=== PATIENT | female | born 1995 | race Caucasian/White ===

== ENCOUNTER 2017-09-12 19:55 | Emergency (ER) | payer SELFPAY | END 2017-09-12 22:15 | disposition home or self-care (01) | LOC: ERS 19:55 → MERGE 19:55 → ERS 22:15 | DX: L73.9 Follicular disorder, unspecified (principal); F41.9 Anxiety disorder, unspecified; F31.9 Bipolar disorder, unspecified; F17.210 Nicotine dependence, cigarettes, uncomplicated | CPT/HCPCS: 99283 ==

== ENCOUNTER 2017-12-11 22:59 | Emergency (ER) | payer SELFPAY ==
[2017-12-11] MEDS ORDERED: Ondansetron ODT 4 MG TAB ONE (23:18)
[2017-12-11 23:43] LABS: #Basophils 0.1 thou/uL (0.0-0.2); #Eosinphils 0.2 thou/uL (0.0-0.7); #Lymphocytes 3.7 thou/uL (1.20-3.40); #Monocytes 0.7 thou/uL (0.11-0.59); #Neutrophils 3.1 thou/uL (1.40-6.50); %Basophils 1.6 % (0.0-1.0); %Lymphocytes 47.4 % (21.0-51.0); %Monocytes 8.7 % (0.0-10.0); %Neutrophils 40.4 % (42.0-75.0); Hemoglobin 12.6 g/dL (12.0-16.0); Mean Corpuscular HGB CONC 32.2 g/dL (32.0-36.0); Mean Corpuscular Hemoglobin 25.5 pg (27.0-31.0); Mean Corpuscular Volume 79.1 fl (81.0-99.0); Mean Platelet Volume 9.4 fL (7.4-10.4); Platelet Count 193 thou/uL (130-400); RBC Distribution Width 13.1 % (11.5-14.5); Red Blood Cell (RBC) Count 4.96 mill/uL (4.20-5.40); White Blood Cell (WBC) Count 7.7 thou/uL (4.8-10.8)
[2017-12-11 23:46] LABS: BHCG - Serum Negative (NEGATIVE); Pregs Control Background? CLEAR/WHITE (CLR/WHITE); Pregs Control Bar Appear? YES (CONTROL BAR)
[2017-12-11 23:59] LABS: ALT (SGPT) 36 U/L (8-55); AST (SGOT) 25 U/L (5-34); Albumin 4.2 g/dL (3.5-5.0); Alkaline Phosphatase 60 U/L (40-150); Anion Gap 17 mmol/L (10-20); BUN (Urea Nitrogen) 8 mg/dL (7.0-18.7); Bilirubin, Total 0.2 mg/dL (0.2-1.2); Calc. Creatinine Clearance 0 mL/min (70-130); Calcium 9.5 mg/dL (7.8-10.44); Carbon Dioxide 20 mmol/L (22-29); Chloride 107 mmol/L (98-107); Estimated GFR-MDRD Greater than 90; Globulin 3.4 g/dL (2.4-3.5); Glucose 122 mg/dL (70-105); Potassium 3.8 mmol/L (3.5-5.1); Protein, Total 7.6 g/dL (6.0-8.3); Sodium 140 mmol/L (136-145)
[2017-12-12 00:16] LABS: Lipase 27 U/L (8-78)
== END 2017-12-12 00:44 | disposition home or self-care (01) ==
LOC: SCSER 22:59
DX: R11.2 Nausea with vomiting, unspecified (principal); F41.9 Anxiety disorder, unspecified; F31.9 Bipolar disorder, unspecified; F17.210 Nicotine dependence, cigarettes, uncomplicated
CPT/HCPCS: 80053; 83690; 84703; 85025; 99283; Q0162

== ENCOUNTER 2018-01-23 14:25 | Emergency (ER) | payer SELFPAY ==
[2018-01-23 16:49] LABS: Pregnancy Test - Urine (BHCG) Negative (Negative)
[2018-01-23 16:50] LABS: Pregu Control Background? CLEAR/WHITE (CLR/WHITE); Pregu Control Bar Appear? YES (CONTROL BAR); Specific Gravity 1.015 (1.002-1.036)
[2018-01-23 16:52] LABS: Bilirubin Negative (Negative); Blood, Urine Negative (Negative); Clarity CLEAR (Clear); Glucose, Urine (Dipstick) Negative (Negative); Leukocyte Negative (Negative); Nitrite Negative (Negative); Protein, Urine (Dipstick) Negative (Neg-Trace); Specific Gravity, Urine 1.015 (1.002-1.036); pH, Urine 7.5 (5.0-9.0)
== END 2018-01-23 16:38 | disposition home or self-care (01) ==
LOC: ERS 14:25
DX: J06.9 Acute upper respiratory infection, unspecified (principal); F31.9 Bipolar disorder, unspecified; F41.9 Anxiety disorder, unspecified; I42.9 Cardiomyopathy, unspecified
CPT/HCPCS: 81003; 81025; 99283

== ENCOUNTER 2018-03-22 09:28 | Outpatient (CLI) | payer MEDICAID | END 2018-03-22 09:29 | disposition home or self-care (01) | LOC: BICULT 09:28 | PROVIDERS: ATTEND Family Medicine | DX: R10.2 Pelvic and perineal pain (principal); R10.9 Unspecified abdominal pain; K82.4 Cholesterolosis of gallbladder; N83.202 Unspecified ovarian cyst, left side | CPT/HCPCS: 76700; 76856 ==

== ENCOUNTER 2018-06-10 00:05 | Emergency (ER) | payer SELFPAY ==
[2018-06-10 01:12] LABS: Bilirubin Negative (Negative); Blood, Urine Negative (Negative); Clarity CLEAR (Clear); Glucose, Urine (Dipstick) Negative (Negative); Leukocyte Negative (Negative); Nitrite Positive (Negative); Protein, Urine (Dipstick) Negative (Neg-Trace); Specific Gravity, Urine 1.027 (1.002-1.036)
[2018-06-10 01:13] LABS: Pregnancy Test - Urine (BHCG) Negative (Negative); Pregu Control Background? CLEAR/WHITE (CLR/WHITE); Pregu Control Bar Appear? YES (CONTROL BAR); Specific Gravity 1.027 (1.002-1.036)
[2018-06-10 01:15] LABS: Bacteria/HPF 4+ HPF (None Seen); Pathc Cast-AUWi Flag 0.58 (0-2.49); Squamous Epithelial 0-3 HPF (0-3); WBC/HPF 0-3 HPF (0-3)
[2018-06-10] MEDS ORDERED: Ondansetron ODT 4 MG TAB ONE (01:18)
[2018-06-10 01:21] LABS: Hyaline Casts/LPF NONE SEEN LPF (0-3 Hyaline); RBC/HPF 0-3 HPF (0-3)
== END 2018-06-10 02:00 | disposition home or self-care (01) ==
LOC: ERS 00:05
DX: N39.0 Urinary tract infection, site not specified (principal); R11.2 Nausea with vomiting, unspecified; F31.9 Bipolar disorder, unspecified; F41.9 Anxiety disorder, unspecified; F17.210 Nicotine dependence, cigarettes, uncomplicated; Z79.899 Other long term (current) drug therapy
CPT/HCPCS: 81003; 81015; 81025; 87077; 87086; 87186; 99284; Q0162

== ENCOUNTER 2018-07-15 16:12 | Outpatient (CLI) | payer OTHER ==
[2018-07-15 17:27] LABS: Hemoglobin 14.2 g/dL (12.0-16.0); Mean Corpuscular HGB CONC 34.3 g/dL (32.0-36.0); Mean Corpuscular Hemoglobin 28.9 pg (27.0-31.0); Mean Corpuscular Volume 84.2 fL (78.0-98.0); Mean Platelet Volume 8.3 fL (7.4-10.4); Platelet Count 203 thou/uL (130-400); RBC Distribution Width 12.7 % (11.5-14.5); Red Blood Cell (RBC) Count 4.91 mill/uL (4.20-5.40); White Blood Cell (WBC) Count 9.6 thou/uL (4.8-10.8)
[2018-07-15 18:10] LABS: BHCG - Serum Negative (NEGATIVE); Pregs Control Background? CLEAR/WHITE (CLR/WHITE); Pregs Control Bar Appear? YES (CONTROL BAR)
== END 2018-07-15 16:13 | disposition home or self-care (01) ==
LOC: LABBT 16:12
PROVIDERS: ATTEND Obstetrics & Gynecology
DX: Z01.812 Encounter for preprocedural laboratory examination (principal); N83.202 Unspecified ovarian cyst, left side
CPT/HCPCS: 84703; 85027; 86850; 86900; 86901

== ENCOUNTER 2018-07-19 11:26 | Day surgery (SDC) | payer OTHER ==
[2018-07-15 16:31] VITALS: BMI 29.8
--- NOTE | 2018-07-15 20:18 | HP ---
She is set for date surgery on 07/19/2018 HISTORY OF PRESENT ILLNESS: Ms. Ryan is a 23-year-old white female, who was referred for pelvic enrique n, it has been ongoing for the past several months. She is noted to have an ultrasound of the pelvis showing a 6 cm simple ovarian cyst noted on the left ovary region. This had been persistent and con tinues to cause her pelvic pain and desires surgical excision. PAST MEDICAL HISTORY: Negative. PAST SURGICAL HISTORY: Negative. SOCIAL HISTORY: She has never been . She is approximately a 1/4 pack per day smoker, minima l alcohol use. FAMILY HISTORY: Heart disease in her maternal grandmother. She has had a history of chlamydia in past. Pap smear is up to date being normal in 08/27/2017. ALLERGIES: SULFA. PHYSICAL EXAMINATION: VITAL SIGNS: Height 5 feet 2 inches, 163 pounds, BMI 29.8, blood pressure 130/84, pulse regular 89, respirations 18. GENERAL: She is well-developed, well-nourished, white female in no acute distress. HEENT: Within normal limits. CHEST: Clear to auscultation. HEART: Regular rate and rhythm. S1, S2 heart sounds, no murmurs, rubs or gallops. ABDOMEN: Soft, nontender, nondistended with no palpable masses. PELVIC: Vulva and vagina had no lesions. Cervix had no lesions. Uterus was small, nontender, not e nlarged. Adnexa with some tenderness in the left adnexal side with a 6 cm left adnexal mass apprecia mckenna. This was confirmed by transvaginal ultrasound, showing a 6 cm left adnexal cyst, appears contig uous with left ovarian cortex, normal appearing right ovary and uterus noted on ultrasound. No cul-d e-sac fluid seen. ASSESSMENT: A 23-year-old white female G0 with persistent left side at 6 cm simple ovarian cyst with continued pelvic pain. PLAN: Proceed with a diagnostic laparoscopy with laparoscopic left ovarian cystectomy. The patient is also desiring evaluation of her tubal patency due to her previous chlamydia history and will also perform a chromotubation of the tubes during this laparoscopic procedure. Risks and benefits of proc edure discussed in detail. She is set for surgery on 07/19/2018.
[2018-07-19] MEDS ORDERED: Famotidine/PF 20 mg/2ml Vial ONE (11:54)
[2018-07-19] MEDS ORDERED: CeleCOXIB 100 MG CAP ONE (11:55)
[2018-07-19] MEDS ORDERED: Gabapentin 300 MG CAP ONE (11:56)
[2018-07-19] MEDS ORDERED: CEFAZOLIN/Water 2 GM/20 ML SYRINGE ONE (11:56)
[2018-07-19] MEDS ORDERED: Fentanyl 100 MCG/2 ML VIAL ONE ×3 (12:35→15:39)
[2018-07-19] MEDS ORDERED: Midazolam HCl 2 mg/2 ml Vial ONE ×2 (12:35→13:25)
[2018-07-19] MEDS ORDERED: Bupivacaine HCl 0.5%/Epinephrine 1:200,000/PF 30 ml Vial ONE (13:04)
[2018-07-19] MEDS ORDERED: Meperidine HCl/PF 25 MG/ML VIAL ONE (15:35)
[2018-07-19] MEDS ORDERED: Ketorolac Tromethamine 30 MG/ML VIAL ONE (15:55)
[2018-07-19] MEDS ORDERED: HYDROcodone/Acetaminophen 5/325 mg Tablet ONE (18:41)
== END 2018-07-19 18:42 | disposition home or self-care (01) ==
LOC: SDC 11:26
PROVIDERS: ATTEND Obstetrics & Gynecology
PROC: 0UN74ZZ Release Bilateral Fallopian Tubes, Percutaneous Endoscopic Approach (ICD-10-PCS; principal; 2018-07-19)
PROC: 3E1P78Z Irrigation of Female Reproductive using Irrigating Substance, Via Natural or Artificial Opening (ICD-10-PCS; principal; 2018-07-19)
DX: N73.6 Female pelvic peritoneal adhesions (postinfective) (principal); N70.11 Chronic salpingitis; N83.202 Unspecified ovarian cyst, left side; F17.210 Nicotine dependence, cigarettes, uncomplicated; Z79.899 Other long term (current) drug therapy; Z88.2 Allergy status to sulfonamides; Z88.8 Allergy status to other drugs, medicaments and biological substances
CPT/HCPCS: 96374; 96375; J0670; J1885; J2175; J2250; J3010; Q9968; S0028

== ENCOUNTER 2018-09-11 14:45 | Observation (INO) | payer SELFPAY ==
[2018-09-11 15:24] LABS: Bilirubin Negative (Negative); Blood, Urine Negative (Negative); Clarity CLEAR (Clear); Glucose, Urine (Dipstick) Negative (Negative); Leukocyte Trace (Negative); Nitrite Negative (Negative); Protein, Urine (Dipstick) Negative (Neg-Trace); Specific Gravity, Urine 1.014 (1.002-1.036); Urobilinogen 0.2 mg/dL (0.2-1.0); pH, Urine 5.5 (5.0-9.0)
[2018-09-11 15:25] LABS: Pregnancy Test - Urine (BHCG) Negative (Negative); Pregu Control Background? CLEAR/WHITE (CLR/WHITE); Pregu Control Bar Appear? YES (CONTROL BAR); Specific Gravity 1.014 (1.002-1.036)
[2018-09-11 15:25] LABS: #Eosinphils 0.1 thou/uL (0.0-0.7); #Lymphocytes 2.5 thou/uL (1.20-3.40); #Monocytes 0.4 thou/uL (0.11-0.59); %Basophils 0.3 % (0.0-1.0); %Eosinophils 0.6 % (0.0-10.0); %Lymphocytes 27.9 % (21.0-51.0); %Monocytes 4.7 % (0.0-10.0); %Neutrophils 66.5 % (42.0-75.0); Hemoglobin 15.1 g/dL (12.0-16.0); Mean Corpuscular HGB CONC 34.1 g/dL (32.0-36.0); Mean Corpuscular Hemoglobin 28.1 pg (27.0-31.0); Mean Corpuscular Volume 82.7 fL (78.0-98.0); Mean Platelet Volume 8.4 fL (7.4-10.4); Platelet Count 264 thou/uL (130-400); RBC Distribution Width 12.2 % (11.5-14.5); Red Blood Cell (RBC) Count 5.36 mill/uL (4.20-5.40); White Blood Cell (WBC) Count 9.1 thou/uL (4.8-10.8)
[2018-09-11 15:26] LABS: Bacteria/HPF 2+ HPF (None Seen); Hyaline Casts/LPF 0-3 HYALINE CAST LPF (0-3 Hyaline); Pathc Cast-AUWi Flag 0.43 (0-2.49); RBC/HPF 0-3 HPF (0-3); Squamous Epithelial 0-3 HPF (0-3); WBC/HPF 0-3 HPF (0-3)
[2018-09-11] MEDS ORDERED: Lorazepam 2 MG/ML VIAL ONE ×2 (15:30→22:45)
[2018-09-11 15:33] LABS: Amphetamine Not Detected (NotDetected); Barbiturates Screen Not Detected (NotDetected); Benzodiazepine Screen Not Detected (NotDetected); Cocaine Metabolite Screen Not Detected (NotDetected); Medtox Control Line Valid? VALID (VALID); Medtox Reader # READER 1; Methadone Not Detected (NotDetected); Methamphetamine Not Detected (NotDetected); Opiate Screen Not Detected (NotDetected); Oxycodone Screen Not Detected (NotDetected); Phencyclidine (PCP) Not Detected (NotDetected); THC/Cannabinoid Screen Not Detected (NotDetected); Tricyclic Screen Not Detected (NotDetected)
[2018-09-11 15:50] LABS: ALT (SGPT) 43 U/L (8-55); AST (SGOT) 26 U/L (5-34); Acetaminophen Less than 6.0 mcg/mL (10.0-30.0); Albumin 5.3 g/dL (3.5-5.0); Alcohol Less than 10 mg/dL (Less than 10); Alkaline Phosphatase 91 U/L (40-150); Anion Gap 16 mmol/L (10-20); BUN (Urea Nitrogen) 10 mg/dL (7.0-18.7); Bilirubin, Total 0.5 mg/dL (0.2-1.2); CK (CPK) 145 U/L (29-168); Calc. Creatinine Clearance 0 mL/min (70-130); Calcium 10.2 mg/dL (7.8-10.44); Carbon Dioxide 24 mmol/L (22-29); Chloride 103 mmol/L (98-107); Estimated GFR-MDRD 82; Globulin 4.1 g/dL (2.4-3.5); Glucose 122 mg/dL (70-105); Potassium 3.8 mmol/L (3.5-5.1); Protein, Total 9.4 g/dL (6.0-8.3); Salicylate Less than 8.0 mg/dL (15.0-30.0); Sodium 139 mmol/L (136-145)
[2018-09-11] MEDS ORDERED: Ibuprofen 800 MG TAB ONE (21:20)
[2018-09-11] MEDS ORDERED: Cyproheptadine 4 MG TAB PO SCH (23:30)
[2018-09-12] MEDS ORDERED: Lorazepam 2 MG/ML VIAL SLOW IVP PRN (01:16)
[2018-09-12] MEDS: Sodium Chloride 0.45% 1,000 ML IV SCH ×2 (01:30→10:23)
[2018-09-12 01:59] VITALS: BMI 31.0
[2018-09-12] MEDS ORDERED: cloNIDine 0.1 MG TAB PO PRN (08:56)
--- NOTE | 2018-09-12 11:34 | HP ---
PRIMARY CARE PHYSICIAN: Dr. Lehman. CHIEF COMPLAINT: Depression and took a lot of pills. HISTORY OF PRESENT ILLNESS: Ms. Ryan is a very pleasant 23-year-old female who says that she has be en arguing with her boyfriend off and on and also arguing with his parents and says that she got depr essed, because of the way things have been going and as a result she took a handful of Zoloft in an a ttempt to hurt herself and just to sleep. She reportedly took about 30-40 pills. When asked if she has tried suicide attempt in the past, she tells me that she has not; however, in the ER records, it says that she has cut herself in the past. It does not reveal a lot with regards to how she has been feeling lately other than feeling depressed. She says that she moved here from [place] about a yea r ago to live with her boyfriend. Currently, she is unemployed and stays with him as well as his par ents, otherwise no significant complaints. She says she is feeling a bit sleepy today, but other scott n that, denies any headaches, no dizziness, no chest pain, no shortness of breath, no PND, no orthopn ea. REVIEW OF SYSTEMS: All systems are reviewed and are negative except for that mentioned in the histor y of present illness. PAST MEDICAL HISTORY: Significant for depression for about 2 years. PAST SURGICAL HISTORY: She has had a laparoscopic ovary removed. ALLERGIES: To BACTRIM and LASIX. MEDICATIONS: Include Zoloft 100 mg daily. SOCIAL HISTORY: She works as a EDUCATION NURSE. She smokes 3-4 times a week. Denies any alcohol use, no drugs. FAMILY HISTORY: Significant for heart disease. PHYSICAL EXAMINATION: VITAL SIGNS: Blood pressure was 116/81, heart rate initially was 138, currently heart rate is around 115, respiratory rate of 20, temperature is 98.2. GENERAL: She is well-developed and well-nourished. She appears to be in no acute distress. HEENT: Pupils are equal, round, and reactive. Extraocular muscles are intact. Her sclerae are anic teric. Throat: There is no erythema, no exudates. NECK: No adenopathy, no bruits. LUNGS: Clear to auscultation. There is no wheezing, no rales. CARDIOVASCULAR: She has a normal S1, S2. I did not appreciate an S3 or S4. No murmurs, clicks or r ubs. ABDOMEN: Obese, it is soft, it is nontender, nondistended. Positive for bowel sounds. There is no rebound, no guarding, no organomegaly. EXTREMITIES: There is no clubbing, cyanosis, no edema. No joint effusion or tenderness. No crepitu s. She has got palpable dorsalis pedis pulses bilaterally. NEUROLOGIC: Her cranial nerves II through XII are intact. Muscle strength is 5/5. SKIN AND INTEGUMENT: No skin changes. No rashes. LABORATORY RESULTS: Urinalysis was significant for trace leukocyte esterase. Urine drug screen was negative. CBC: White blood cell count 9.1, hemoglobin 15.1, hematocrit is 44.3, platelet count is 2 64. Chemistry: Sodium 139, potassium 3.8, chloride is 103, CO2 is 24, BUN of 10, creatinine 0.86, g lucose is 122. Urine test was negative. ASSESSMENT AND PLAN: This is a pleasant 23-year-old female that has a history of depression for brandi ral years who tried to harm herself taking quite a few Zoloft. Currently, she appears clinically sta ble. Her heart rate has improved with hydration. She will be placed in observation. We will contin ue IV hydration and monitor her on telemetry and monitor for serotonin syndrome and hopefully later t his afternoon, if she remains clinically stable, then we can get an [facility] consult for a safe discharge plan.
--- NOTE | 2018-09-12 14:56 | PDOC.EVN ---
Event Note - Event Note Event Note: Ms. Ryan's heart rate has normalized, and she has not had any abnormalities on the absorption and adsorption engineer. She is medically cleared for discharge.
[2018-09-13 05:49] LABS: Anion Gap 12 mmol/L (10-20); BUN (Urea Nitrogen) 10 mg/dL (7.0-18.7); Calc. Creatinine Clearance 142 mL/min (70-130); Calcium 8.9 mg/dL (7.8-10.44); Carbon Dioxide 24 mmol/L (22-29); Chloride 106 mmol/L (98-107); Estimated GFR-MDRD Greater than 90; Glucose 107 mg/dL (70-105); Potassium 3.7 mmol/L (3.5-5.1); Sodium 138 mmol/L (136-145)
[2018-09-13 06:31] LABS: Eosinophils 3 % (0-10); Hemoglobin 13.3 g/dL (12.0-16.0); Lymphocytes 36 % (21-51); MDiff Complete? YES; Mean Corpuscular HGB CONC 33.1 g/dL (32.0-36.0); Mean Corpuscular Hemoglobin 27.8 pg (27.0-31.0); Mean Corpuscular Volume 84.1 fL (78.0-98.0); Mean Platelet Volume 8.5 fL (7.4-10.4); Monocytes 6 % (0-10); Neutrophil 53 % (42-75); PLT Morphology Comment Appears Adequate; Platelet Count 214 thou/uL (130-400); RBC Distribution Width 12.3 % (11.5-14.5); RBC Morphology Normal; Reactive Lymphocytes 2 % (0-10); Red Blood Cell (RBC) Count 4.78 mill/uL (4.20-5.40); White Blood Cell (WBC) Count 9.1 thou/uL (4.8-10.8)
--- NOTE | 2018-09-13 09:26 | PDOC.PN ---
- Subjective Encounter Start Date: 09/13/18 Encounter Start Time: 09:24 Ms. Ryan was seen today in follow-up of Suicidal ideation. She does not have any complaints this morning. - Objective Resuscitation Status: Resuscitation Status FULL:Full Resuscitation MAR Reviewed: Yes Vital Signs & Weight: Vital Signs (12 hours) Temp Pulse Resp BP Pulse Ox 09/13/18 08:00 97.7 F 83 14 137/89 99 09/13/18 04:00 98.4 F 85 16 119/75 98 Weight Weight 163 lb 8 oz I&O: 09/12/18 09/13/18 09/14/18 06:59 06:59 06:59 Intake Total 1480 Output Total 600 Balance 880 Result Diagrams: 09/13/18 05:16 09/13/18 05:16 Phys Exam - Physical Examination HEENT: PERRLA Respiratory: no wheezing, no rales, no rhonchi Cardiovascular: RRR, no significant murmur, no rub Gastrointestinal: soft, non-tender, no distention, positive bowel sounds Musculoskeletal: no edema Dx/Plan (1) Drug overdose, intentional Code(s): T50.902A - POISONING BY UNSP DRUG/MEDS/BIOL SUBST, SELF-HARM, INIT Status: Acute (2) Suicidal ideation Code(s): R45.851 - SUICIDAL IDEATIONS Status: Acute (3) Depression Code(s): F32.9 - MAJOR DEPRESSIVE DISORDER, SINGLE EPISODE, UNSPECIFIED Status : Chronic - Plan * Suicide Attempt by Zoloft overdose- she is medically stable, HR has improved' She can be moved off the telemetry Unit, while awaiting [facility] evaluation.
[2018-09-13] MEDS: Nicotine 21 MG PATCH TOP SCH (20:34)
--- NOTE | 2018-09-14 16:47 | PDOC.PN ---
- Subjective Encounter Start Date: 09/14/18 Encounter Start Time: 16:45 Ms. Ryan was seen today in follow-up of suicide attempt. She notes a small painful knot on her left arm. It started after stretching her arm back, and felt like something bit her. - Objective Resuscitation Status: Resuscitation Status FULL:Full Resuscitation MAR Reviewed: Yes Vital Signs & Weight: Vital Signs (12 hours) Temp Pulse Resp BP Pulse Ox 09/14/18 08:00 97.9 F 101 H 18 129/84 98 Weight Weight 163 lb 8 oz Result Diagrams: 09/13/18 05:16 09/13/18 05:16 Phys Exam - Physical Examination HEENT: PERRLA Respiratory: no wheezing, no rales, no rhonchi, clear to auscultation bilateral Cardiovascular: RRR, no significant murmur, no rub Gastrointestinal: soft, non-tender, no distention, positive bowel sounds small subcutaneous nodule on the mid portion of left forearm, no redness, no warmth good radial and ulnar pulses Neurological: non-focal, moves all 4 limbs Psychiatric: A&O x 3 Dx/Plan (1) Drug overdose, intentional Code(s): T50.902A - POISONING BY UNSP DRUG/MEDS/BIOL SUBST, SELF-HARM, INIT Status: Acute (2) Suicidal ideation Code(s): R45.851 - SUICIDAL IDEATIONS Status: Acute (3) UTI (urinary tract infection) Status: Acute (4) Depression Code(s): F32.9 - MAJOR DEPRESSIVE DISORDER, SINGLE EPISODE, UNSPECIFIED Status : Chronic - Plan * Suicidal Ideation- [facility] has recommended Inpatient treatment * Awaiting placement * Depression- stable * UTI- will treat with Cipro, based on culture results.
[2018-09-14] MEDS: Cipro 250 MG TAB PO SCH (20:45)
[2018-09-14] MEDS: Nicotine 21 MG PATCH TOP SCH (20:47)
[2018-09-14] MEDS: TERCONAZOLE 0.8% VAG SCH (20:49)
[2018-09-15] MEDS: Cipro 250 MG TAB PO SCH ×2 (05:34→20:53)
--- NOTE | 2018-09-15 16:28 | PDOC.PN ---
- Subjective Encounter Start Date: 09/15/18 Encounter Start Time: 16:27 Ms. Ryan was seen today in follow-up of suicidal ideation. She does not have any new complaints. - Objective Resuscitation Status: Resuscitation Status FULL:Full Resuscitation MAR Reviewed: Yes Vital Signs & Weight: Vital Signs (12 hours) Temp Pulse Resp BP Pulse Ox 09/15/18 07:54 98.3 F 93 20 109/77 99 09/15/18 04:56 98.1 F 92 18 118/81 100 Weight Weight 163 lb 8 oz I&O: 09/14/18 09/15/18 09/16/18 06:59 06:59 06:59 Intake Total 860 Balance 860 Result Diagrams: 09/13/18 05:16 09/13/18 05:16 Phys Exam - Physical Examination Respiratory: no wheezing, no rales, no rhonchi, clear to auscultation bilateral Cardiovascular: RRR, no significant murmur, no rub Gastrointestinal: soft, non-tender, no distention, positive bowel sounds Musculoskeletal: no edema Dx/Plan (1) Drug overdose, intentional Code(s): T50.902A - POISONING BY UNSP DRUG/MEDS/BIOL SUBST, SELF-HARM, INIT Status: Acute (2) Suicidal ideation Code(s): R45.851 - SUICIDAL IDEATIONS Status: Acute (3) UTI (urinary tract infection) Status: Acute (4) Depression Code(s): F32.9 - MAJOR DEPRESSIVE DISORDER, SINGLE EPISODE, UNSPECIFIED Status : Chronic - Plan * Intentional Drug overdose- stable * UTI- continue Cipro * Depression - will re-start Zoloft tomorrow.
[2018-09-15] MEDS: Acetaminophen 325 MG TAB PO PRN ×2 (17:50→23:34)
[2018-09-15] MEDS: SALONPAS TOP PRN ×2 (19:24→21:01)
[2018-09-15] MEDS: Nicotine 21 MG PATCH TOP SCH (20:53)
[2018-09-15] MEDS: TERCONAZOLE 0.8% VAG SCH (20:54)
[2018-09-16] MEDS: Ondansetron ODT 4 MG TAB PO PRN ×2 (02:01→12:57)
[2018-09-16] MEDS: Cipro 250 MG TAB PO SCH (06:24)
[2018-09-16 07:24] VITALS: BP 102/64; TEMP 97.8
--- NOTE | 2018-09-17 13:22 | DIS ---
DATE OF ADMISSION: 09/12/2018 DATE OF DISCHARGE: 09/16/2018 PRIMARY CARE PHYSICIAN: Dr. Lehman. DISCHARGE DISPOSITION: Home. PRIMARY DISCHARGE DIAGNOSES: 1. Intentional drug overdose. 2. Suicide attempt. 3. Depression. 4. Urinary tract infection. DISCHARGE MEDICATIONS: Include ciprofloxacin 250 mg twice a day for 1 additional day, Ambien 5 mg da sienna, and Prozac 20 mg daily. CODE STATUS: FULL CODE. ALLERGIES: LATEX, SULFAMETHOXAZOLE, and TRIMETHOPRIM. HOSPITAL COURSE: Ms. Ryan is a pleasant 23-year-old female who was admitted to the hospital after s he took up to 30 or 40 of her Zoloft in an attempt to harm herself. There was concern that she could have a serious serotonin reaction. Therefore, she was monitored in the hospital overnight on teleme try. The following day, she was feeling much improved. However, due to the suicide attempt, she had to be placed on suicide precautions and an [facility] consult was obtained. It was initially recommended that she would be hospitalized in [place] or the [facility], but her mother arrived from out [place] emergency department and a safe discharge plan in the care of her mother was formulated through [facility] and she was di scharged on 09/17/2018.
== END 2018-09-16 13:47 | disposition home or self-care (01) ==
LOC: ERS 14:45 → 2NO 09-12 00:38 → T4-B 09-13 11:14
PROVIDERS: ADMIT Internal Medicine; ATTEND Internal Medicine
DX: T43.222A Poisoning by selective serotonin reuptake inhibitors, intentional self-harm, initial encounter (principal); F32.9 Major depressive disorder, single episode, unspecified; N39.0 Urinary tract infection, site not specified; F17.200 Nicotine dependence, unspecified, uncomplicated; R45.81 Low self-esteem; Z88.2 Allergy status to sulfonamides; Z88.8 Allergy status to other drugs, medicaments and biological substances; Z91.040 Latex allergy status
CPT/HCPCS: 36415; 80048; 80053; 80306; 80307; 81003; 81015; 81025; 82550; 83735; 84443; 85025; 87077; 87086; 87186; 93005; 96361; 96374; 96376; G0378; J2060; Q0162

== ENCOUNTER 2020-09-04 20:09 | Emergency (ER) | payer BC, OTHER ==
[2020-09-04] MEDS ORDERED: Ketorolac Tromethamine 30 MG/ML VIAL ONE (21:18)
[2020-09-04] MEDS ORDERED: diphenhydrAMINE 50 MG/ML VIAL ONE (21:18)
[2020-09-04] MEDS ORDERED: Acetaminophen 500 MG TAB ONE (21:18)
[2020-09-04] MEDS ORDERED: Metoclopramide HCl 10 MG/2 ML VIAL ONE (21:18)
== END 2020-09-04 22:41 | disposition home or self-care (01) ==
LOC: ERS 20:09
DX: R51.9 Headache, unspecified (principal); F41.9 Anxiety disorder, unspecified; F31.9 Bipolar disorder, unspecified; F17.290 Nicotine dependence, other tobacco product, uncomplicated; Z79.899 Other long term (current) drug therapy
CPT/HCPCS: 94760; 96365; 96375; J1200; J1885; J2765

== ENCOUNTER 2020-09-07 09:47 | Emergency (ER) | payer BC ==
[2020-09-07] MEDS ORDERED: Dexamethasone 10 MG/ML VIAL ONE (10:32)
== END 2020-09-07 10:37 | disposition home or self-care (01) ==
LOC: ERS 09:47
DX: M54.32 Sciatica, left side (principal); F41.9 Anxiety disorder, unspecified; F32.9 Major depressive disorder, single episode, unspecified; F17.290 Nicotine dependence, other tobacco product, uncomplicated; Z79.899 Other long term (current) drug therapy
CPT/HCPCS: 99283; J1100

== ENCOUNTER 2020-10-01 19:49 | Emergency (ER) | payer BC ==
[~2020-10-01 19:49] MED LIST: Iopamidol-370 76% 500 ML 1 ML ONE
[2020-10-01 20:39] LABS: #Basophils 0.1 thou/uL (0.0-0.2); #Eosinphils 0.1 thou/uL (0.0-0.7); #Lymphocytes 3.1 thou/uL (1.20-3.40); #Monocytes 0.8 thou/uL (0.11-0.59); #Neutrophils 6.6 thou/uL (1.40-6.50); %Basophils 0.5 % (0.0-1.0); %Lymphocytes 28.9 % (21.0-51.0); %Monocytes 7.3 % (0.0-10.0); %Neutrophils 62.2 % (42.0-75.0); Hemoglobin 15.2 g/dL (12.0-16.0); Mean Corpuscular Hemoglobin 30.2 pg (27.0-31.0); Mean Corpuscular Volume 86.3 fL (78.0-98.0); Mean Platelet Volume 8.9 fL (7.4-10.4); Platelet Count 211 thou/uL (130-400); RBC Distribution Width 12.3 % (11.5-14.5); Red Blood Cell (RBC) Count 5.04 mill/uL (4.20-5.40); White Blood Cell (WBC) Count 10.7 thou/uL (4.8-10.8)
[2020-10-01 20:49] LABS: BHCG - Serum Negative (NEGATIVE); Pregs Control Background? CLEAR/WHITE (CLR/WHITE); Pregs Control Bar Appear? YES (CONTROL BAR)
[2020-10-01 21:03] LABS: ALT (SGPT) 34 U/L (8-55); AST (SGOT) 22 U/L (5-34); Albumin 4.3 g/dL (3.5-5.0); Alkaline Phosphatase 82 U/L (40-110); Anion Gap 17 mmol/L (10-20); BUN (Urea Nitrogen) 10 mg/dL (7.0-18.7); Bilirubin, Total 0.4 mg/dL (0.2-1.2); Calc. Creatinine Clearance 0 mL/min (70-130); Carbon Dioxide 18 mmol/L (22-29); Chloride 107 mmol/L (98-107); Estimated GFR-MDRD Greater than 90; Globulin 3.7 g/dL (2.4-3.5); Glucose 94 mg/dL (70-105); Lipase 16 U/L (8-78); Potassium 3.7 mmol/L (3.5-5.1); Sodium 138 mmol/L (136-145)
[2020-10-01] MEDS ORDERED: Morphine 4 MG/ML VIAL ONE (22:28)
[2020-10-01] MEDS ORDERED: Ketorolac Tromethamine 30 MG/ML VIAL ONE (22:28)
[2020-10-01] MEDS ORDERED: Ondansetron PF 4 MG/2 ML Vial ONE (22:28)
[2020-10-01 23:09] LABS: Bilirubin Negative (Negative); Blood, Urine Negative (Negative); Clarity Clear (Clear); Glucose, Urine (Dipstick) Normal (Negative); Ketone, Urine Negative (Negative); Leukocyte 250 Leu/uL (Negative); Nitrite Negative (Negative); Protein, Urine (Dipstick) 10 mg/dL (Neg-Trace); Specific Gravity, Urine 1.022 (1.002-1.036); Urobilinogen Normal mg/dL (Less than 2); WBC/HPF 21-50 HPF (0-3); pH, Urine 5.5 (5.0-9.0)
[2020-10-01 23:10] LABS: Bacteria/HPF 1+ HPF (None Seen)
--- NOTE | 2020-10-02 00:04 | CT ---
CT abdomen and pelvis with IV contrast HISTORY: Abdomen pain. FINDINGS: The lung bases are clear. The liver, spleen, kidneys, adrenal glands, and pancreas have a n ormal CT appearance. Urinary bladder is unremarkable. No evidence of bowel obstruction or inflammation. The appendix appears to be surgically absent. IMPRESSION : No abnormalities are demonstrated.
--- NOTE | 2020-10-02 09:17 | CT ---
PRELIMINARY REPORT/[facility]/EMERGENCY AFTER HOURS PROCEDURE: EXAM: CT Head Without Intravenous Contrast. CLINICAL HISTORY: HEADACHE, IODINATED CONTRAST GIVEN APPROX 40 MINUTES PRIOR TO EXAM TECHNIQUE: Axial computed tomography images of the head/brain without intravenous contrast. COMPARISON: None provided. FINDINGS: BRAIN: No acute intraparenchymal hemorrhage. No mass lesion. No CT evidence for acute territorial infarct. N o midline shift or extra-axial collection. VENTRICLES: No hydrocephalus. ORBITS: The orbits are unremarkable. SINUSES AND MASTOIDS: The paranasal sinuses and mastoid air cells are clear. SOFT TISSUES: No significant facial or scalp soft tissue swelling evident. No radiopaque foreign body is seen. BONES: No acute skull fracture. MISCELLANEOUS: There is a questionable thickening with increased density of the tentorium which she probably due to recent contrast infusion. Meningitis cannot be excluded. Clinical correlation recommended. IMPRESSION: There is a questionable thickening with increased density of the tentorium which she probably due to recent contrast infusion. Meningitis cannot be excluded. Clinical correlation recommended. ELECTRONICALLY SIGNED BY: Addison Keith MD Oct 02, 2020 12:33:28 AM CATEGORY DIRECTOR This report is intended for review by the ordering physician only, in accordance of law. If you recei ve this report in error, please call [facility] at [phone]. FINAL REPORT CT OF THE BRAIN WITHOUT CONTRAST: COMPARISON: CT abdomen/pelvis 10/01/2020. FINDINGS/IMPRESSION: I agree with the findings and impression given in the preliminary report per [facility] physici an. There is enhancement in the choroid plexus and along the tentorium. Given the enhancement from recen t contrast administration, a small amount of blood cannot be excluded in this location. There are mu ltifocal areas of hyperdensity within the bilateral parietal sulci which may represent enhancement fr om the recent exam. Recommend a repeat CT in 4 hours after the contrast has had time to adequately b e removed from the body. POS: EAA
== END 2020-10-02 00:36 | disposition home or self-care (01) ==
LOC: ERS 19:49
DX: N12 Tubulo-interstitial nephritis, not specified as acute or chronic (principal); F32.9 Major depressive disorder, single episode, unspecified; F41.9 Anxiety disorder, unspecified; G43.909 Migraine, unspecified, not intractable, without status migrainosus; F17.290 Nicotine dependence, other tobacco product, uncomplicated
CPT/HCPCS: 36415; 70450; 74177; 80053; 81003; 81015; 83690; 84703; 85025; 96374; 96375; J1885; J2270; J2405; Q9967

== ENCOUNTER 2020-11-21 22:17 | Emergency (ER) | payer BC ==
[2020-11-21 23:24] LABS: Hemoglobin 13.2 g/dL (12.0-16.0); Mean Corpuscular HGB CONC 32.4 g/dL (32.0-36.0); Mean Corpuscular Hemoglobin 27.9 pg (27.0-31.0); Mean Corpuscular Volume 86.1 fL (78.0-98.0); Mean Platelet Volume 9.4 fL (7.4-10.4); Platelet Count 172 thou/uL (130-400); RBC Distribution Width 11.6 % (11.5-14.5); Red Blood Cell (RBC) Count 4.73 mill/uL (4.20-5.40); White Blood Cell (WBC) Count 5.7 thou/uL (4.8-10.8)
[2020-11-21 23:43] LABS: Band 9 % (5-11); Lymphocytes 35 % (21-51); MDiff Complete? YES; Monocytes 6 % (0-10); Neutrophil 38 % (42-75); Platelet Morphology Comment Appears Adequate; RBC Morphology Normal; Reactive Lymphocytes 12 % (0-10)
[2020-11-22 00:01] LABS: Bilirubin Negative (Negative); Blood, Urine Negative (Negative); Clarity Clear (Clear); Glucose, Urine (Dipstick) Normal (Negative); Ketone, Urine Trace mg/dL (Negative); Leukocyte Negative Leu/uL (Negative); Nitrite Negative (Negative); Protein, Urine (Dipstick) Negative (Neg-Trace); Specific Gravity, Urine 1.012 (1.002-1.036); Urobilinogen Normal mg/dL (Less than 2)
--- NOTE | 2020-11-22 07:04 | ULT ---
TRANSABDOMINAL AND TRANSVAGINAL PELVIC ULTRASOUND WITH DOPPLER: DATE: 11/21/2020. PROVIDED CLINICAL HISTORY: Pelvic pain. FINDINGS: There is an intrauterine gestational sac with yolk demonstrated, with a pole with crown-rump le ngth corresponding to a 5-week 5-day gestation. Cardiac activity was not assessed. The uterus appea rs otherwise unremarkable, as do both ovaries. Color Doppler and spectral analysis of the ovarian wa veforms demonstrates normal flow bilaterally. There is no evidence for free pelvic fluid. IMPRESSION: Early intrauterine . Correlation with serial followup beta HCG values is recommended. POS: [facility]
== END 2020-11-22 01:30 | disposition home or self-care (01) ==
LOC: ERS 22:17
DX: O20.0 Threatened abortion (principal); O98.511 Other viral diseases complicating pregnancy, first trimester; U07.1 COVID-19; O99.331 Smoking (tobacco) complicating pregnancy, first trimester; F17.290 Nicotine dependence, other tobacco product, uncomplicated
CPT/HCPCS: 36415; 76856; 81003; 84702; 85025; 86900; 86901